=== PATIENT | male | born 1960 | race Caucasian/White ===

== ENCOUNTER 2019-07-17 22:26 | Emergency (ER) | payer BC ==
[2019-07-17] MEDS ORDERED: Sodium Chloride 0.9% 2.5 ML Syringe FLUSH PRN (22:37)
[2019-07-17] MEDS ORDERED: Sodium Chloride 0.9% 10 ML Syringe FLUSH PRN (22:37)
--- NOTE | 2019-07-17 22:49 | EDM.PDOC ---
ED HPI GENERAL MEDICAL PROBLEM - General Chief Complaint: Headache Stated Complaint: HBP LT SIDE HEAD PAIN/PRESSURE Time Seen by Provider: 07/17/19 22:36 - History of Present Illness INITIAL COMMENTS - FREE TEXT/NARRATIVE: HISTORY AND PHYSICAL: History of present illness: Patient is a 59-year-old male with no history of hypertension who presents with complaints of pain to the right side of his neck extending into behind his ear that started about 8:30 PM as he was driving home from work that was not associated with any other symptoms. He says the pain was gradual in onset and was not triggered by any particular movements and it was dull and localized to this area. When he got home at 9:30 PM he checked his blood pressure and it was 147/101 and then he repeated it and it was 178/103. He says that the pain he rated it as a 4/10 and he was just going to lay down and try to go to sleep when his insisted that he come here. The patient took no medication for the discomfort in his right neck and head and currently he says that it "feels pretty good". He says his blood pressure is never been elevated and when he usually goes to a walk-in clinic for a cold or other acute symptoms the systolic blood pressure is usually 120s. The patient says he doesn't eat an excessive amount of sodium and he's had no trauma to his head or neck and had no numbness tingling or weakness in his extremities with these events. He had no resting or lumbar back pain no flank pain no shortness of breath no chest pain no vomiting nausea or diarrhea. He's had no upper respiratory symptoms and he has no history of trauma in the recent past. He does tell me that he does go to a chiropractor when his neck gets out of place and has it "popped back in". He says that the pain he experiences evening was not similar to that. The patient has a history of quitting tobacco use in the past but has restarted and smokes 2-3 cigarettes per day but denies drug or alcohol use other than social alcohol. Currently in the ED he has no complaints and says that his discomfort has improved. He tells me that the only reason why he came here is because his blood pressure was elevated and his insisted that he come here. Review of systems: As per history of present illness and below otherwise all systems reviewed and negative. Past medical history: As per history of present illness and as reviewed below otherwise noncontributory. Surgical history: As per history of present illness and as reviewed below otherwise noncontributory. Social history: No reported history of drug or alcohol abuse. Family history: As per history of present illness and as reviewed below otherwise noncontributory. Physical exam: General: Well-developed well-nourished man who is nontoxic and vital signs are noted by me. HEENT: Atraumatic, normocephalic, pupils reactive, negative for conjunctival pallor or scleral icterus, mucous membranes moist, throat clear, neck supple, nontender, trachea midline. There is no specific area of discomfort on palpation of the entire neck musculature as well as the midline C-spine and there is no tenderness with palpation of the scalp or occipital groove. There is no cervical adenopathy or nuchal rigidity. Lungs: Clear to auscultation, breath sounds equal bilaterally, chest nontender. Heart: S1S2, regular, negative for clicks, rubs, or JVD. Abdomen: Soft, nondistended, nontender. Negative for masses or hepatosplenomegaly. Negative for costovertebral tenderness. Pelvis: Stable nontender. Genitourinary: Deferred. Rectal: Deferred. Extremities: Atraumatic, negative for cords or calf pain. Neurovascular unremarkable. No pedal edema or leg asymmetry Neuro: Awake, alert, oriented. Cranial nerves II through XII unremarkable. Cerebellum unremarkable. Motor and sensory unremarkable throughout. Exam nonfocal. Patient has full range of motion of all extremities and strength throughout is 5/5. It should be noted that when he was raising his right arm and allowing me to do the exam pushing down he did grimace saying that it did elicit the pain in his right neck. Back: There are no midline step-offs in his defects of the thoracic or lumbar spine no posterior rib tenderness Diagnostics: EKG CBC CMP troponin UA with reflex CT scan of the head and C-spine Therapeutics: IV O2 monitor Patient refuses medications for headache/pain Testing results were discussed with the patient and at bedside and I have strictly advised that he needs to monitor his symptoms take his blood pressure and keep a journal and follow-up with Dr. sadler in the clinic. They state understanding and the patient wants to go home. Impression: Episode of hypertension with right neck and head pain improved Definitive disposition and diagnosis as appropriate pending reevaluation and review of above. nape Pain Score (Numeric/FACES): 4 - Related Data Allergies Allergy/AdvReac Type Severity Reaction Status Date / Time sulfamethoxazole Allergy Shortness Verified 07/17/19 22:36 [From Bactrim] of Breath trimethoprim [From Bactrim] Allergy Shortness Verified 07/17/19 22:36 of Breath Home Meds: Home Meds Citalopram Hydrobromide [Celexa] 40 tab PO DAILY 04/09/15 [History] clonazePAM [Clonazepam] 0.5 mg PO ASDIRECTED PRN 04/09/15 [History] Past Medical History HEENT History: Reports: None Cardiovascular History: Reports: None Other Respiratory History: Scheduled for Sleep Apnea Testing, reports 40 yr history of smoking Gastrointestinal History: Reports: GERD Other Gastrointestinal History: Periodically "heartburn" Other Musculoskeletal History: hx: fractured Left arm and Clavicle, some aches, "possible arthritis nothing serious" Psychiatric History: Reports: Anxiety - Infectious Disease History Infectious Disease History: Reports: Chicken Pox - Past Surgical History HEENT Surgical History: Reports: None Cardiovascular Surgical History: Reports: None GI Surgical History: Reports: Cholecystectomy Social & Family History - Family History Family Medical History: Noncontributory - Tobacco Use Smoking Status *Q: Current Every Day Smoker Years of Tobacco use: 40 Packs/Tins Daily: 1 - Recreational Drug Use Recreational Drug Use: No ED ROS GENERAL - Review of Systems Review Of Systems: ROS reveals no pertinent complaints other than HPI. ED EXAM, GENERAL - Physical Exam Exam: See Below (See dictation) Course - Vital Signs Last Recorded V/S: Last Vital Signs Temp 36.1 C 07/17/19 22:26 Pulse 75 07/17/19 23:18 Resp 20 07/17/19 23:18 BP 148/89 H 07/17/19 23:18 Pulse Ox 94 L 07/17/19 23:18 - Orders/Labs/Meds Orders: Active Orders 24 hr Category Date Time Status Cardiac Monitoring [RC] . DIRECTED Care 07/17/19 22:37 Active EKG Documentation Completion [RC] STAT Care 07/17/19 22:37 Active Oxygen Therapy, ED [RC] ASDIRECTED Care 07/17/19 22:37 Active Pulse Oximetry [RC] ASDIRECTED Care 07/17/19 22:37 Active Sodium Chloride 0.9% [Saline Flush] Med 07/17/19 22:37 Active 10 ml FLUSH ASDIRECTED PRN Sodium Chloride 0.9% [Saline Flush] Med 07/17/19 22:37 Active 2.5 ml FLUSH ASDIRECTED PRN Saline Lock Insert [OM.PC] Stat Oth 07/17/19 22:37 Ordered Medication Orders Sodium Chloride (Saline Flush) 10 ml FLUSH ASDIRECTED PRN PRN Reason: Keep Vein Open Sodium Chloride (Saline Flush) 2.5 ml FLUSH ASDIRECTED PRN PRN Reason: Keep Vein Open Labs: Laboratory Tests 07/17/19 07/17/19 07/17/19 Range/Units 22:50 22:53 22:53 WBC 13.30 H (4.0-11.0) K/uL RBC 5.05 (4.50-5.90) M/uL Hgb 15.6 (13.0-17.0) g/dL Hct 45.2 (38.0-50.0) % MCV 89.5 (80.0-98.0) fL MCH 30.9 (27.0-32.0) pg MCHC 34.5 (31.0-37.0) g/dL RDW Std Deviation 44.8 (28.0-62.0) fl RDW Coeff of Billy 14 (11.0-15.0) % Plt Count 221 (150-400) K/uL MPV 9.40 (7.40-12.00) fL Neut % (Auto) 76.9 (48.0-80.0) % Lymph % (Auto) 15.0 L (16.0-40.0) % [place] % (Auto) 7.1 (0.0-15.0) % Eos % (Auto) 0.7 (0.0-7.0) % Baso % (Auto) 0.3 (0.0-1.5) % Neut # (Auto) 10.2 H (1.4-5.7) K/uL Lymph # (Auto) 2.0 (0.6-2.4) K/uL [place] # (Auto) 1.0 H (0.0-0.8) K/uL Eos # (Auto) 0.1 (0.0-0.7) K/uL Baso # (Auto) 0.0 (0.0-0.1) K/uL Nucleated RBC % 0.0 /100WBC Nucleated RBCs # 0 K/uL Sodium 139 (136-148) mmol/L Potassium 3.8 (3.5-5.1) mmol/L Chloride 103 (98-107) mmol/L Carbon Dioxide 25.8 (21.0-32.0) mmol/L BUN 13 (7.0-18.0) mg/dL Creatinine 1.3 (0.8-1.3) mg/dL Est Cr Clr Drug Dosing 63.17 mL/min Estimated GFR (MDRD) 56.5 ml/min Glucose 150 H (74-106) mg/dL Calcium 8.7 (8.5-10.1) mg/dL Total Bilirubin 0.5 (0.2-1.0) mg/dL AST 27 (15-37) IU/L ALT 37 (14-63) IU/L Alkaline Phosphatase 88 (46-116) U/L Troponin I < 0.050 (0.000-0.056) ng/mL Total Protein 7.2 (6.4-8.2) g/dL Albumin 3.7 (3.4-5.0) g/dL Globulin 3.5 (2.6-4.0) g/dL Albumin/Globulin Ratio 1.1 (0.9-1.6) Urine Color YELLOW Urine Appearance CLEAR Urine pH 6.0 (5.0-8.0) Ur Specific [place] <= 1.005 (1.001-1.035) Urine Protein NEGATIVE (NEGATIVE) mg/dL Urine Glucose (UA) 100 H (NEGATIVE) mg/dL Urine Ketones TRACE H (NEGATIVE) mg/dL Urine Occult Blood NEGATIVE (NEGATIVE) Urine Nitrite NEGATIVE (NEGATIVE) Urine Bilirubin NEGATIVE (NEGATIVE) Urine Urobilinogen 0.2 (<2.0) EU/dL Ur Leukocyte Esterase NEGATIVE (NEGATIVE) Meds: Medications Generic Name Dose Route Start Last Admin Trade Name Freq PRN Reason Stop Dose Admin Sodium Chloride 10 ml 07/17/19 22:37 Saline Flush FLUSH ASDIRECTED PRN Keep Vein Open Sodium Chloride 2.5 ml 07/17/19 22:37 Saline Flush FLUSH ASDIRECTED PRN Keep Vein Open Departure - Departure Time of Disposition: 23:51 Disposition: Home, Self-Care 01 Condition: Good Clinical Impression: Elevated blood pressure reading, Neck pain Head pain Qualifiers: Headache type: unspecified - Discharge Information Referrals: Dario Sadler MD [Primary Care Provider] - Forms: ED Department Discharge Additional Instructions: The following information is given to patients seen in the emergency department who are being discharged to home. This information is to outline your options for follow-up care. We provide all patients seen in our emergency department with a follow-up referral. The need for follow-up, as well as the timing and circumstances, are variable depending upon the specifics of your emergency department visit. If you don't have a primary care physician on staff, we will provide you with a referral. We always advise you to contact your personal physician following an emergency department visit to inform them of the circumstance of the visit and for follow-up with them and/or the need for any referrals to a consulting specialist. The emergency department will also refer you to a specialist when appropriate. This referral assures that you have the opportunity for followup care with a specialist. All of these measure are taken in an effort to provide you with optimal care, which includes your followup. Under all circumstances we always encourage you to contact your private physician who remains a resource for coordinating your care. When calling for followup care, please make the office aware that this follow-up is from your recent emergency room visit. If for any reason you are refused follow-up, please contact the [facility] emergency department at and ask to speak to the emergency department charge nurse. [facility] Primary care- [place] [address] Please contact your provider in the clinic and set up a follow-up appointment and start doing a journal and log of your symptoms as well as your blood pressure as we discussed. Return to ER as needed and as discussed - My Orders Last 24 Hours: My Active Orders 07/17/19 22:37 Cardiac Monitoring [RC] . DIRECTED EKG Documentation Completion [RC] STAT Oxygen Therapy, ED [RC] ASDIRECTED Pulse Oximetry [RC] ASDIRECTED Sodium Chloride 0.9% [Saline Flush] 10 ml FLUSH ASDIRECTED PRN Sodium Chloride 0.9% [Saline Flush] 2.5 ml FLUSH ASDIRECTED PRN Saline Lock Insert [OM.PC] Stat - Assessment/Plan Last 24 Hours: My Active Orders 07/17/19 22:37 Cardiac Monitoring [RC] . DIRECTED EKG Documentation Completion [RC] STAT Oxygen Therapy, ED [RC] ASDIRECTED Pulse Oximetry [RC] ASDIRECTED Sodium Chloride 0.9% [Saline Flush] 10 ml FLUSH ASDIRECTED PRN Sodium Chloride 0.9% [Saline Flush] 2.5 ml FLUSH ASDIRECTED PRN Saline Lock Insert [OM.PC] Stat
[2019-07-17 23:24] LABS: BLOOD UREA NITROGEN,BUN 13 mg/dL (7.0-18.0); CARBON DIOXIDE,CO2 25.8 mmol/L (21.0-32.0); CHLORIDE,CL 103 mmol/L (98-107); GLUCOSE RANDOM 150 mg/dL (74-106); POTASSIUM,K 3.8 mmol/L (3.5-5.1); SODIUM,NA 139 mmol/L (136-148)
--- NOTE | 2019-07-17 23:25 | CT ---
INDICATION: Pain without injury TECHNIQUE: CT cervical spine without contrast. COMPARISON: None FINDINGS: Vertebrae: Alignment is normal. There are no fractures or suspicious bony lesions. Discs and facet joints: Minimal scattered degenerative changes are present. Extraspinal findings: Paravertebral soft tissues are unremarkable. IMPRESSION: Unremarkable cervical spine except for minimal degenerative changes. No other specific finding to explain pain. Please note that all CT scans at this facility use dose modulation, iterative reconstruction, and/or weight-based dosing when appropriate to reduce radiation dose to as low as reasonably achievable. Dictated by Marvin Tirado MD @ Jul 17 2019 11:19PM Signed by Dr. Marvin Tirado @ Jul 17 2019 11:22PM
--- NOTE | 2019-07-17 23:27 | CT ---
INDICATION: Pain without injury TECHNIQUE: Head CT without contrast. COMPARISON: None FINDINGS: CSF spaces: Within normal limits for age. Brain parenchyma and extra-axial spaces: There are mild nonspecific low attenuation white matter changes consistent with chronic microvascular disease. No sign of mass, hemorrhage, or midline shift. Skull base and calvarium: The visualized paranasal sinuses and mastoid air cells demonstrate no acute or significant findings. The visualized orbits are grossly unremarkable. No skull fractures. IMPRESSION: Mild chronic microvascular changes are present. Otherwise unremarkable exam. No specific finding to explain pain. Please note that all CT scans at this facility use dose modulation, iterative reconstruction, and/or weight-based dosing when appropriate to reduce radiation dose to as low as reasonably achievable. Dictated by Marvin Tirado MD @ Jul 17 2019 11:19PM Signed by Dr. Mravin Tirado @ Jul 17 2019 11:25PM
[2019-07-18 01:06] VITALS: BP 141/90; PULSE 78
== END 2019-07-18 | disposition home or self-care (01) ==
LOC: MW.ED 22:26
DX: R03.0 Elevated blood-pressure reading, without diagnosis of hypertension (principal); M54.2 Cervicalgia; F17.210 Nicotine dependence, cigarettes, uncomplicated; Z88.1 Allergy status to other antibiotic agents
CPT/HCPCS: 36415; 70450; 70450-26; 72125; 72125-26; 80053; 81003; 84484; 85025; 93005; 99284-25; 99285

== ENCOUNTER 2021-12-28 01:59 | Emergency (ER) | payer BC ==
[2021-12-28] MEDS ORDERED: Famotidine 20 MG/2 ML SDV IVPUSH ONE (02:19)
[2021-12-28] MEDS ORDERED: Morphine 4 MG/ML VIAL IVPUSH ONE (02:19)
[2021-12-28] MEDS ORDERED: Ondansetron 4 MG/2 ML SDV IVPUSH ONE (02:19)
[2021-12-28] MEDS ORDERED: Sodium Chloride 0.9% 1,000 ML IV ONE (02:19)
[2021-12-28 02:55] LABS: BLOOD UREA NITROGEN,BUN 13 mg/dL (7.0-18.0); CARBON DIOXIDE,CO2 24.3 mmol/L (21.0-32.0); CHLORIDE,CL 105 mmol/L (98-107); GLUCOSE RANDOM 151 mg/dL (74-106); LIPASE 368 U/L (73-393); POTASSIUM,K 3.5 mmol/L (3.5-5.1); SODIUM,NA 137 mmol/L (136-148)
[2021-12-28] MEDS ORDERED: Iopamidol 755 MG/ML 500 ML Multipack Bottle IVPUSH ONE (03:12)
[2021-12-28 05:45] VITALS: BP 147/84; PULSE 79
== END 2021-12-28 05:45 | disposition home or self-care (01) ==
LOC: MW.ED 01:59
DX: K85.90 Acute pancreatitis without necrosis or infection, unspecified (principal); Z90.49 Acquired absence of other specified parts of digestive tract; Z79.899 Other long term (current) drug therapy; Z88.2 Allergy status to sulfonamides
CPT/HCPCS: 36415; 74177; 80053; 81003; 83605; 83690; 83735; 85025; 96374; 96375; 99284; J2270; J2405; J3490; J7030; Q9967

== ENCOUNTER 2021-12-29 08:26 | Observation (INO) | payer BC ==
[2021-12-29] MEDS ORDERED: Sodium Chloride 0.9% 2.5 ML Syringe FLUSH PRN (08:29)
[2021-12-29] MEDS ORDERED: Sodium Chloride 0.9% 10 ML Syringe FLUSH PRN (08:29)
[2021-12-29] MEDS ORDERED: Sodium Chloride 0.9% 1,000 ML IV ONE ×2 (08:30→10:07)
[2021-12-29] MEDS ORDERED: Morphine 4 MG/ML VIAL IVPUSH ONE (08:30)
[2021-12-29] MEDS ORDERED: Ondansetron 4 MG/2 ML SDV IVPUSH STA (08:42)
[2021-12-29 09:14] LABS: BLOOD UREA NITROGEN,BUN 10 mg/dL (7.0-18.0); CARBON DIOXIDE,CO2 23.1 mmol/L (21.0-32.0); CHLORIDE,CL 100 mmol/L (98-107); GLUCOSE RANDOM 129 mg/dL (74-106); LIPASE 251 U/L (73-393); POTASSIUM,K 3.9 mmol/L (3.5-5.1); SODIUM,NA 135 mmol/L (136-148)
[2021-12-29] MEDS ORDERED: LORazepam 2 MG/ML SDV IVPUSH PRN (10:09)
[2021-12-29] MEDS ORDERED: Morphine 4 MG/ML VIAL IVPUSH PRN (10:28)
[2021-12-29] MEDS: Pantoprazole 40 MG in Sodium Chloride 0.9% 10 ML IVPUSH SCH (10:56)
[2021-12-29] MEDS: Folic Acid 50 MG/10 ML MDV SUBCUT SCH (10:56)
[2021-12-29] MEDS: Thiamine 200 MG/2 ML MDV IVPUSH SCH (11:02)
[2021-12-29] MEDS: Morphine 2 MG/ML SYRINGE IVPUSH PRN ×5 (11:44→23:27)
[2021-12-29] MEDS: Sodium Chloride 0.9% 1,000 ML IV SCH ×3 (11:46→22:05)
[2021-12-30] MEDS: Morphine 2 MG/ML SYRINGE IVPUSH PRN ×3 (03:08→22:17)
[2021-12-30] MEDS: Sodium Chloride 0.9% 1,000 ML IV SCH ×4 (03:13→20:14)
[2021-12-30 06:24] LABS: BLOOD UREA NITROGEN,BUN 8 mg/dL (7.0-18.0); CARBON DIOXIDE,CO2 22.3 mmol/L (21.0-32.0); CHLORIDE,CL 102 mmol/L (98-107); GLUCOSE RANDOM 86 mg/dL (74-106); LIPASE 86 U/L (73-393); POTASSIUM,K 3.7 mmol/L (3.5-5.1); SODIUM,NA 134 mmol/L (136-148)
[2021-12-30] MEDS: Folic Acid 50 MG/10 ML MDV SUBCUT SCH (08:09)
[2021-12-30] MEDS: Thiamine 200 MG/2 ML MDV IVPUSH SCH (08:10)
[2021-12-30] MEDS: Pantoprazole 40 MG in Sodium Chloride 0.9% 10 ML IVPUSH SCH (09:15)
[2021-12-31] MEDS: Morphine 2 MG/ML SYRINGE IVPUSH PRN (02:56)
[2021-12-31] MEDS: Sodium Chloride 0.9% 1,000 ML IV SCH (04:00)
[2021-12-31] MEDS: Folic Acid 50 MG/10 ML MDV SUBCUT SCH (09:39)
[2021-12-31] MEDS: Thiamine 200 MG/2 ML MDV IVPUSH SCH (09:40)
[2021-12-31] MEDS: Pantoprazole 40 MG in Sodium Chloride 0.9% 10 ML IVPUSH SCH (09:42)
[2021-12-31 13:26] VITALS: BP 134/83; PULSE 79
== END 2021-12-31 13:40 | disposition home or self-care (01) ==
LOC: MW.ED 08:26 → MW.MS 09:33
PROVIDERS: ADMIT Internal Medicine; ATTEND Internal Medicine
DX: K85.90 Acute pancreatitis without necrosis or infection, unspecified (principal); I10 Essential (primary) hypertension; K21.9 Gastro-esophageal reflux disease without esophagitis; F41.9 Anxiety disorder, unspecified; Z88.2 Allergy status to sulfonamides; Z90.49 Acquired absence of other specified parts of digestive tract; Z20.822 Contact with and (suspected) exposure to COVID-19; Z79.899 Other long term (current) drug therapy
CPT/HCPCS: 36415; 76700; 80053; 80061; 83605; 83690; 85025; 87635; 96372; 96374; 96375; 99285; C9113; J2270; J2405; J3411; J3490; J7030; U0002

== ENCOUNTER 2022-07-29 22:26 | Emergency (ER) | payer BC ==
[2022-07-29] MEDS ORDERED: Ketorolac 30 MG/ML SDV IVPUSH ONE (22:54)
[2022-07-29] MEDS ORDERED: Lactated Ringers 1,000 ML IV STA (22:54)
[2022-07-29 23:31] LABS: CARBON DIOXIDE,CO2 24.1 mmol/L (21.0-32.0); POTASSIUM,K 3.7 mmol/L (3.5-5.1)
[2022-07-30 01:30] VITALS: BP 153/89; PULSE 67
== END 2022-07-30 01:22 | disposition home or self-care (01) ==
LOC: MW.ED 22:26
DX: R10.30 Lower abdominal pain, unspecified (principal); M54.50 Low back pain, unspecified; I10 Essential (primary) hypertension; Z88.2 Allergy status to sulfonamides; Z90.49 Acquired absence of other specified parts of digestive tract
CPT/HCPCS: 36415; 74176; 80053; 81003; 83690; 85025; 96361; 96374; 99284; J1885; J7120

== ENCOUNTER 2023-05-12 19:19 | Emergency (ER) | payer BC ==
[2023-05-12] MEDS ORDERED: Sodium Chloride 0.9% 1,000 ML IV ONE (19:29)
[2023-05-12] MEDS ORDERED: Ketorolac 30 MG/ML SDV IVPUSH ONE (19:29)
[2023-05-12] MEDS ORDERED: Ondansetron 4 MG/2 ML SDV IVPUSH ONE ×2 (19:29→21:52)
[2023-05-12 19:47] LABS: BASOPHILS ABSOLUTE AUTO 0.1 K/uL (0.0-0.1); BASOPHILS PERCENT AUTO 0.4 % (0.0-1.5); EOSINOPHILS ABSOLUTE AUTO 0.1 K/uL (0.0-0.7); EOSINOPHILS PERCENT AUTO 1.2 % (0.0-7.0); HEMATOCRIT 43.7 % (38.0-50.0); LYMPHOCYTES ABSOLUTE AUTO 1.5 K/uL (0.6-2.4); MEAN CORPUSCULAR HEMOGLOBIN 29.7 pg (27.0-32.0); MEAN CORPUSCULAR HGB CONC 34.3 g/dL (31.0-37.0); MEAN CORPUSCULAR VOLUME 86.5 fL (80.0-98.0); MONOCYTES ABSOLUTE AUTO 0.7 K/uL (0.0-0.8); MONOCYTES PERCENT AUTO 5.8 % (0.0-15.0); NEUTROPHILS ABSOLUTE AUTO 9.1 K/uL (1.4-5.7); NEUTROPHILS PERCENT AUTO 79.6 % (48.0-80.0); NRBC ABSOLUTE 0 K/uL; PLATELET COUNT,PLT 336 K/uL (150-400); RED BLOOD CELL COUNT 5.05 M/uL (4.50-5.90)
[2023-05-12 20:08] LABS: A/G RATIO 0.9 (0.9-1.6); ALANINE AMINOTRANSFERASE,ALT 33 IU/L (14-63); ALBUMIN 3.3 g/dL (3.4-5.0); ALKALINE PHOSPHATASE 100 U/L (46-116); ASPARTATE AMNIOTRANSFERASE,AST 18 IU/L (15-37); BILIRUBIN TOTAL 0.3 mg/dL (0.2-1.0); BLOOD UREA NITROGEN,BUN 17 mg/dL (7.0-18.0); CALCIUM 9.2 mg/dL (8.5-10.1); CARBON DIOXIDE,CO2 23.9 mmol/L (21.0-32.0); CHLORIDE,CL 102 mmol/L (98-107); CREATININE 1.1 mg/dL (0.8-1.3); GLUCOSE RANDOM 145 mg/dL (74-106); LIPASE 110 U/L (16-77); POTASSIUM,K 4.1 mmol/L (3.5-5.1); PROTEIN TOTAL,TP 7.1 g/dL (6.4-8.2); SODIUM,NA 136 mmol/L (136-148)
[2023-05-12 20:10] LABS: ESTIMATED GFR 76 mL/min (>60)
[2023-05-12 21:33] LABS: APPEARANCE,URINE CLEAR; BILIRUBIN,URINE NEGATIVE (NEGATIVE); COLOR,URINE YELLOW; GLUCOSE,URINE 250 mg/dL (NEGATIVE); KETONES,URINE TRACE mg/dL (NEGATIVE); LEUKOCYTE ESTERASE,URINE NEGATIVE (NEGATIVE); NITRITE,URINE NEGATIVE (NEGATIVE); OCCULT BLOOD,URINE NEGATIVE (NEGATIVE); PROTEIN,URINE NEGATIVE (NEGATIVE); UROBILINOGEN,URINE 0.2 EU/dL (<2.0)
[2023-05-12] MEDS ORDERED: Acetaminophen/HYDROcodone 325-5 MG Tab PO ONE (21:56)
[2023-05-12 22:14] VITALS: BP 132/85; PULSE 76
== END 2023-05-12 22:13 | disposition home or self-care (01) ==
LOC: MW.ED 19:19
DX: K85.90 Acute pancreatitis without necrosis or infection, unspecified (principal); I10 Essential (primary) hypertension; Z88.1 Allergy status to other antibiotic agents; Z86.16 Personal history of COVID-19
CPT/HCPCS: 36415; 74176; 80053; 81003; 83690; 85025; 93005; 96361; 96374; 96375; 99284; A9270; J1885; J2405; J7030; 93010

== ENCOUNTER 2025-03-07 21:05 | Emergency (ER) | payer BC ==
[2025-03-07] MEDS: Tetracaine HCl/PF 0.5% 4 ML Bottle EYEBOTH ONE (22:12)
[2025-03-07] MEDS: Moxifloxacin 0.5% Ophth Soln 3 ML Bottle EYELF ONE (23:19)
[2025-03-07] MEDS: Erythromycin Base 0.5% Ophth Oint 1 GM Tube EYELF ONE (23:24)
[2025-03-07 23:38] VITALS: BP 122/81; PULSE 68
== END 2025-03-07 23:37 | disposition home or self-care (01) ==
LOC: MW.ED 21:05
DX: S05.02XA Injury of conjunctiva and corneal abrasion without foreign body, left eye, initial encounter (principal); I10 Essential (primary) hypertension; E78.00 Pure hypercholesterolemia, unspecified; Z88.2 Allergy status to sulfonamides; Z88.8 Allergy status to other drugs, medicaments and biological substances; Z79.899 Other long term (current) drug therapy; Z90.49 Acquired absence of other specified parts of digestive tract; X58.XXXA Exposure to other specified factors, initial encounter
CPT/HCPCS: 99283; A9270; J3490

== ENCOUNTER 2025-06-27 20:27 | Emergency (ER) | payer BC ==
[2025-06-27 20:48] VITALS: PULSE 77
[2025-06-27] MEDS: Ketorolac 30 MG/ML SDV IM ONE (21:10)
[2025-06-27 22:06] VITALS: BP 130/68
== END 2025-06-27 22:06 | disposition home or self-care (01) ==
LOC: MW.ED 20:27
DX: M25.562 Pain in left knee (principal); I10 Essential (primary) hypertension; E78.00 Pure hypercholesterolemia, unspecified; Z88.2 Allergy status to sulfonamides; Z79.899 Other long term (current) drug therapy
CPT/HCPCS: 96372; 99283; A9270; J1885

== ENCOUNTER 2025-08-08 07:19 | Day surgery (SDC) | payer BC, MEDICARE, OTHER ==
[2025-08-08] MEDS ORDERED: Bupivacaine 0.5%/EPINEPHrine 1:200,000 30 ML SDV ONE (07:28)
[2025-08-08] MEDS ORDERED: Ondansetron 4 MG/2 ML SDV ONE (07:55)
[2025-08-08] MEDS ORDERED: Propofol 200 MG/20 ML SDV ONE ×2 (07:55→08:41)
[2025-08-08] MEDS ORDERED: fentaNYL 100 MCG/2 ML SDV ONE (07:55)
[2025-08-08] MEDS: Lactated Ringers 1,000 ML IV SCH (07:55)
[2025-08-08] MEDS ORDERED: Midazolam 1 MG/ML 2 ML SDV ONE (07:55)
[2025-08-08] MEDS ORDERED: ceFAZolin 2 GM in Water For Injection, Sterile 20 ML IVPUSH ONE (08:00)
[2025-08-08] MEDS ORDERED: ePHEDrine 50 MG/ML SDV ONE (08:18)
[2025-08-08] MEDS ORDERED: Ketorolac 30 MG/ML SDV ONE (08:53)
[2025-08-08] MEDS ORDERED: Dexamethasone 4 MG/ML 5 ML MDV ONE (09:09)
[2025-08-08] MEDS ORDERED: Ondansetron 4 MG/2 ML SDV IVPUSH PRN (09:13)
[2025-08-08] MEDS ORDERED: Albuterol 0.083% 2.5 MG/3 ML Neb Soln NEB PRN (09:13)
[2025-08-08] MEDS ORDERED: Naloxone 0.4 MG/ML SDV IVPUSH PRN (09:13)
[2025-08-08] MEDS ORDERED: fentaNYL 50 MCG/ML SDV IVPUSH PRN (09:13)
[2025-08-08 10:30] VITALS: BP 141/83; PULSE 65
== END 2025-08-08 10:05 | disposition home or self-care (01) ==
LOC: MW.SDS 07:19
PROVIDERS: ATTEND Orthopaedic Surgery
DX: S83.242A Other tear of medial meniscus, current injury, left knee, initial encounter (principal); M94.262 Chondromalacia, left knee; I10 Essential (primary) hypertension; E78.00 Pure hypercholesterolemia, unspecified; F17.200 Nicotine dependence, unspecified, uncomplicated; Z88.8 Allergy status to other drugs, medicaments and biological substances; Z88.2 Allergy status to sulfonamides; Z91.040 Latex allergy status; Z79.899 Other long term (current) drug therapy
CPT/HCPCS: 29881; J0690; J1100; J1885; J2250; J2704; J3010; J7120; J7999; 01400; J0665; J2371; J2405; J3490